=== PATIENT | female | born 1950 | race Native Hawaiian/Other Pacific Islander ===

== ENCOUNTER 2020-04-21 14:18 | Outpatient (CLI) | payer OTHER, BC | END 2020-04-21 20:34 | disposition home or self-care (01) | LOC: RESP 14:18 | DX: I48.91 Unspecified atrial fibrillation (principal) ==

== ENCOUNTER 2020-08-27 11:17 | Outpatient (CLI) | payer BC ==
[2020-08-27 12:23] LABS: POTASSIUM 4.4 mmol/L (3.6-5.2)
== END 2020-08-27 21:10 | disposition home or self-care (01) ==
LOC: LABW 11:17
PROVIDERS: ATTEND Internal Medicine Cardiovascular Disease
DX: Z79.899 Other long term (current) drug therapy (principal); R79.89 Other specified abnormal findings of blood chemistry
CPT/HCPCS: 36415; 80048; 83880; 84443

== ENCOUNTER 2020-10-29 12:55 | Outpatient (CLI) | payer BC ==
[2020-10-29 13:15] LABS: POTASSIUM 4.5 mmol/L (3.6-5.2)
== END 2020-10-29 19:23 | disposition home or self-care (01) ==
LOC: LABW 12:55
PROVIDERS: ATTEND Internal Medicine Cardiovascular Disease
DX: R06.02 Shortness of breath (principal); Z79.899 Other long term (current) drug therapy
CPT/HCPCS: 36415; 80048; 83880